=== PATIENT | female | born 1945 | race Asian ===

== ENCOUNTER 2016-11-11 09:30 | Day surgery (SDC) | payer MEDICARE, OTHER ==
[~2016-11-11] VITALS: Ht 165.1 cm; Wt 53.5 kg
[~2016-11-11 09:30] MED LIST: 0.9% Sodium Chloride 1,000 ML IV SCH; Sodium Chloride LOK Flush 10 mL Syringe IV PRN; fentaNYL-PF 50 mCg/mL 2 mL Inj IVPUSH PRN; no meds
[2016-11-11 10:33] VITALS: BP 122/74; PULSE 66; RESP 14; O2SAT 100
--- NOTE | 2016-11-11 11:17 | PCM.ENDCOL ---
Colonoscopy Date of Service: November 11, 2016 Physician Cheo Angeles MD Pre Procedure Diagnosis: Screening personal history of colon polyp Post Procedure Dx & Findings: Polyp hemorrhoids Procedure Colonoscopy PROCEDURE IN DETAIL: Prep adequate Withdrawal time 9 minutes After unremarkable rectal examination the Olympus video colonoscope was inserted patient's anal canal and was advanced to cecum. Landmarks were identified including the ileocecal valve and appendiceal orifice. Scope was withdrawn systematically. Visualized colonic mucosa showed healthy shiny mucosa with normal healthy-appearing vasculature. In the transverse colon, there was a 3 mm polyp was removed completely using cold snare. In the rectum retroflexion was done which showed hemorrhoids. Anal canal was inspected carefully on the way out and hemorrhoids noted. Impression Polyp 1 status post complete removal Personal history of colon polyp Hemorrhoids Recommendation Repeat colonoscopy 5 years Presedation Assessment Risks and Benefits Informed consent was obtained from the patient after all risks and benefits including but not limited to drug reaction, infection, pain, bleeding, perforation, as well as alternatives were discussed. Patient monitoring Continuous pulse oximetry, cardiac monitoring, blood pressure monitoring, IV access, and oxygen at 2L per nasal cannula. Periprocedural Fentanyl: Fentanyl 100mcg Incrementally Midazolam: Midazolam 4mg Incrementally Complications There were no periprocedural complications identified. Post Procedure Plan Post Procedure Recommendations 1. Restrict activities today. 2. Resume normal activities in the morning. 3. Resume medications. 4. Patient informed of normal post procedure side effects as bloating, drowsiness, blood streaking in the stool. 5. average risk CRCS. If colon polyps come back as: -Hyperplastic- can repeat colonoscopy in 10 years -Tubular adenoma- repeat colonoscopy in 5 years -Tubulovillous/villous adenoma- repeat colonoscopy in 3 years -If any dysplasia- return to clinic as soon as possible 6. Please don't hesitate to call me with any questions. Cheo Angeles MD November 11, 2016 11:17
[2016-11-11 11:18] VITALS: BP 86/53; PULSE 63; RESP 16; O2SAT 96
[2016-11-11 11:36] VITALS: BP 97/67; PULSE 62; RESP 16; O2SAT 100
[2016-11-11 11:49] VITALS: BP 100/60; PULSE 60; RESP 16; O2SAT 99
--- NOTE | 2016-11-12 10:41 | PATH ---
SURGICAL PATHOLOGY Attending Physician:Cheo Angeles M.D. CASE STATUS: Signed Out PATIENT NAME: LILO DIANE PID: [id number] : 1945 DATE COLLECTED:11/11/2016 22:00 SPECIMEN: Colon, Biopsy CLINICAL HISTORY: POLYP 1). TRANSVERSE COLON POLYP X1 FINAL DIAGNOSIS: 1.TRANSVERSE COLON POLYP: TUBULAR ADENOMA INVOLVING THREE BIOPSY FRAGMENTS. ICD10 D12.3 GROSS DESCRIPTION: The specimen is received in one formalin filled container labeled with the patient's name, sublabeled "transverse colon polyp" and consists of 4 portions of tissue which aggregate to 0.5 x 0.4 x 0.3 CM. The specimen is entirely submitted in one cassette. 11/11/2016 DAC MICRO DESCRIPTION: See diagnosis. ICD-9 CODES: CPT CODES: 1: 77562 Electronically Signed Out Nasir Mas MD [facility] Pathology [facility] [address], [place] [address] Technical component performed at [facility], [facility] [address], [place], [address]
== END 2016-11-11 23:59 | disposition home or self-care (01) ==
LOC: END 09:30
PROVIDERS: ATTEND Internal Medicine
DX: Z12.11 Encounter for screening for malignant neoplasm of colon (principal); Z86.010 Personal history of colon polyps; Z80.0 Family history of malignant neoplasm of digestive organs; D12.3 Benign neoplasm of transverse colon; K64.9 Unspecified hemorrhoids
CPT/HCPCS: 45385; G0500; J2250; J3010; J7030